=== PATIENT | female | born 1930 | race Caucasian/White ===

== ENCOUNTER → 2016-06-27 | Outpatient (CLI) | payer MEDICARE | END | disposition home or self-care (01) | LOC: PCVCCLINIC 11:33 | PROVIDERS: ATTEND Internal Medicine Cardiovascular Disease | DX: I77.810 Thoracic aortic ectasia (principal); I10 Essential (primary) hypertension; E78.5 Hyperlipidemia, unspecified; I34.1 Nonrheumatic mitral (valve) prolapse; Z79.82 Long term (current) use of aspirin | CPT/HCPCS: 80061; 93005; G0463 ==

== ENCOUNTER → 2016-12-19 | Outpatient (CLI) | payer MEDICARE ==
--- NOTE | 2016-12-19 16:03 | PCVCIMAG ---
APPROVED REPORT Study performed: 12/19/2016 10:12:15 EXAM: Comprehensive 2D, Doppler, and color-flow Echocardiogram Status: routine BSA: 1.74 HR: 61 bpmBP: 150/100 mmHg Rhythm: NSR Other Information Study Quality: Good Indications Hypertension/HDD Hyperlipidemia. Aorti Root Dilatation. Mitral Valve Prolapse. 2D Dimensions LVEF(%): 69.55 (>50%) IVSd: 10.72 (7-11mm)LVOT Diam: 20.65 (18-24mm) LVDd: 36.22 mm PWd: 9.84 (7-11mm)Ascending Ao: 41.69 (22-36mm) LVDs: 22.32 (25-40mm) Left Atrium: 35.55 (27-40mm) Aortic Root: 37.38 mm LV Single Plane 4CH: 75.54 % LV Single Plane 2CH: 59.48 %Robertson's LVEF: 67.51 % Biplane EF: 70.0 % Volumes Left Atrial Volume (Systole) Single Plane 4CH: 48.62 mLSingle Plane 2CH: 42.13 mL LA ESV Index: 66.00 mL/m2 Aortic Valve AoV Peak Jose Alfredo.: 1.31 m/s AO Peak Gr.: 6.86 mmHgLVOT Max P.47 mmHg LVOT Max V: 1.17 m/s ALFREDITO Vmax: 2.99 cm2 AI Vmax: 4.04 m/s AI [place]: 1.64 m/s2 AI PHT: 712.96 ms Mitral Valve E/A Ratio: 0.7 MV Decel. Time: 286.51 ms MV E Max Jose Alfredo.: 0.68 m/s MV A Jose Alfredo.: 1.01 m/s MV PHT: 83.09 ms IVRT: 51.90 ms TDI E/Lateral E': 8.50E/Medial E': 9.71 Medial E' Jose Alfredo.: 0.07 m/s Lateral E' Jose Alfredo.: 0.08 m/s Pulmonary Valve PV Peak Gr.: 3.12 mmHg Pulmonary Vein P Vein S: 0.54 m/sP Vein A: 0.57 m/s P Vein D: 0.38 m/sP Vein A Dur.: 76.1 msec P Vein S/D Ratio: 1.42 Tricuspid Valve TR Peak Jose Alfredo.: 2.99 m/s TR Peak Gr.: 35.83 mmHg Left Ventricle The left ventricle is normal size. There is normal LV segmental wall motion. There is normal left ventricular wall thickness. Left ventricular systolic function is normal. The left ventricular ejection fraction is within the normal range. LVEF is 60-65%. The left ventricular diastolic function is normal. Right Ventricle The right ventricle is normal size. The right ventricular systolic function is normal. Atria The left atrium size is normal. The right atrium size is normal. Aortic Valve The aortic valve is normal in structure. Mild to moderate aortic regurgitation. There is no aortic valvular stenosis. Mitral Valve Mitral Valve Prolapse. Mild to moderate mitral regurgitation. No evidence of mitral valve stenosis. Tricuspid Valve The tricuspid valve is normal in structure. Mild to moderate tricuspid regurgitation. Pulmonary artery pressure is 43mmhg. Pulmonic Valve The pulmonary valve is normal in structure. There is no pulmonic valvular regurgitation. Great Vessels The aortic root is normal in size. 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 IVC is normal in size and collapses with >50% inspiration Pericardium There is no pericardial effusion. <Conclusion> The left ventricle is normal size. LVEF is 60-65%. The left ventricular diastolic function is normal. The right ventricular systolic function is normal. The left atrium size is normal. There is no aortic valvular stenosis. Mild to moderate aortic regurgitation. Mitral Valve Prolapse. Mild to moderate mitral regurgitation. Mild to moderate tricuspid regurgitation. Pulmonary artery pressure is 43mmhg. There is no pericardial effusion.
== END | disposition home or self-care (01) ==
LOC: PCVCIMAG 09:42
PROVIDERS: ATTEND Internal Medicine Cardiovascular Disease
DX: I08.3 Combined rheumatic disorders of mitral, aortic and tricuspid valves (principal); I10 Essential (primary) hypertension; E78.00 Pure hypercholesterolemia, unspecified; I77.810 Thoracic aortic ectasia; R94.31 Abnormal electrocardiogram [ECG] [EKG]; Z79.82 Long term (current) use of aspirin
CPT/HCPCS: 80061; 93005; 93306; G0463

== ENCOUNTER → 2017-07-23 | Outpatient (CLI) | payer MEDICARE | END | disposition home or self-care (01) | LOC: PCVCCLINIC 14:44 | DX: I34.1 Nonrheumatic mitral (valve) prolapse (principal); I10 Essential (primary) hypertension; I35.1 Nonrheumatic aortic (valve) insufficiency; E78.00 Pure hypercholesterolemia, unspecified; Z79.82 Long term (current) use of aspirin; Z88.8 Allergy status to other drugs, medicaments and biological substances | CPT/HCPCS: 80061; 93005; G0463 ==

== ENCOUNTER → 2018-06-10 | Outpatient (CLI) | payer MEDICARE | END | disposition home or self-care (01) | LOC: PCVCCLINIC 13:21 | PROVIDERS: ATTEND Internal Medicine Cardiovascular Disease | DX: I34.1 Nonrheumatic mitral (valve) prolapse (principal); E78.00 Pure hypercholesterolemia, unspecified; I35.1 Nonrheumatic aortic (valve) insufficiency; I10 Essential (primary) hypertension; R26.89 Other abnormalities of gait and mobility; I77.810 Thoracic aortic ectasia; E78.5 Hyperlipidemia, unspecified; Z88.6 Allergy status to analgesic agent | CPT/HCPCS: 36415; 80061; 93005; G0463 ==

== ENCOUNTER → 2019-01-09 | Outpatient (CLI) | payer MEDICARE ==
--- NOTE | 2019-01-09 14:32 | PCVCIMAG ---
APPROVED REPORT Study performed: 01/09/2019 09:14:07 EXAM: Comprehensive 2D, Doppler, and color-flow Echocardiogram Patient Location: Echo lab Room #: atus: routine BSA: 1.66 HR: 57 bpmBP: 168/96 mmHg Rhythm: Atrial Fibrillation Other Information Study Quality: Adequate Risk Factors: Cardiac Risk Factors: HTN, Hyperlipidemia Indications Mitral Valve Prolapse Dilated aortic root 2D Dimensions IVSd: 12.44 (7-11mm)LVOT Diam: 20.00 (18-24mm) LVDd: 39.91 mm PWd: 11.83 (7-11mm)Ascending Ao: 45.14 (22-36mm) LVDs: 28.52 (25-40mm) Left Atrium: 45.79 (27-40mm) Aortic Root: 35.35 mm LV Single Plane 4CH: 64.76 % LV Single Plane 2CH: 56.76 % Biplane EF: 59.9 % Volumes Left Atrial Volume (Systole) Single Plane 4CH: 75.30 mLSingle Plane 2CH: 65.30 mL LA ESV Index: 45.00 mL/m2 Aortic Valve LVOT Max P.80 mmHg LVOT Max V: 0.97 m/s Pulmonary Valve PV Peak Jose Alfredo.: 0.76 m/sPV Peak Gr.: 2.34 mmHg Tricuspid Valve TR Peak Jose Alfredo.: 2.57 m/sRAP Estimate: 7.00 mmHg TR Peak Gr.: 26.54 mmHg PA Pressure: 33.00 mmHg Left Ventricle The left ventricle is normal size. There is normal LV segmental wall motion. Mild concentric left ventricular hypertrophy. Left ventricular systolic function is normal. The left ventricular ejection fraction is within the normal range. LVEF is 60-65%. This study is not technically sufficient to allow evaluation of the LV diastolic function. Right Ventricle The right ventricle is normal size. The right ventricular systolic function is normal. Atria Left atrium is moderately dilated. Right atrium is dilated. Aortic Valve The Aortic valve is sclerotic. Mild aortic regurgitation. There is no aortic valvular stenosis. Mitral Valve There is mitral annular calcification. Mild to moderate mitral regurgitation. No evidence of mitral valve stenosis. There is mild mitral valve prolapse. Tricuspid Valve The tricuspid valve is normal in structure. Mild to moderate tricuspid regurgitation. Pulmonary artery pressure is 33 mmHg. Pulmonic Valve The pulmonary valve is normal in structure. Trace pulmonic regurgitation. Great Vessels The aortic root is normal in size. Dilated aortic root measuring 4.5 cm. IVC is normal in size and collapses >50% with inspiration. Pericardium There is no pericardial effusion. <Conclusion> The left ventricle is normal size. LVEF is 60-65%. This study is not technically sufficient to allow evaluation of the LV diastolic function. The right ventricle is normal size. Left atrium is moderately dilated. Right atrium is dilated. The Aortic valve is sclerotic. Mild aortic regurgitation. There is mitral annular calcification. Mild to moderate mitral regurgitation. Mild to moderate tricuspid regurgitation. Pulmonary artery pressure is 33 mmHg. There is mild mitral valve prolapse. The aortic root is normal in size. There is no pericardial effusion. Dilated aortic root measuring 4.5 cm.
== END | disposition home or self-care (01) ==
LOC: PCVCIMAG 08:53
PROVIDERS: ATTEND Internal Medicine Cardiovascular Disease
DX: I08.3 Combined rheumatic disorders of mitral, aortic and tricuspid valves (principal); E78.00 Pure hypercholesterolemia, unspecified; I10 Essential (primary) hypertension; I77.810 Thoracic aortic ectasia; Z88.5 Allergy status to narcotic agent; Z79.82 Long term (current) use of aspirin; Z79.899 Other long term (current) drug therapy
CPT/HCPCS: 93306